=== PATIENT | female | born 1955 | race Caucasian/White ===

== ENCOUNTER → 2019-08-29 | Outpatient (CLI) | payer BC ==
--- NOTE | 2019-08-29 09:19 | US ---
EXAMINATION TYPE: US renal artery duplex complete DATE OF EXAM: 08/29/2019 COMPARISON: NONE CLINICAL HISTORY: I10 hypertension. MEASUREMENTS: RENAL SIZE: Rt Kidney: 9.1 x 3.5 x 4.2cm Lt Kidney: 10.9 x 5.2 x 5.2cm RESISTANCE INDEX Right: 0.64 Left: 0.68 RA/AO RATIO (< 3.5 ) Right: 5.0 Left: 2.5 RA VELOCITY ( < 180 cm/s) Right: 365cm/s Left: 177cm/s Right kidney measures smaller than left and there appears to be stenosis at the proximal renal artery . Left appears normal. IMPRESSION: Elevated velocities and elevated ratios on the right compatible with renal artery stenosis. Consider additional workup with MRA renal arteries.
== END | disposition home or self-care (01) ==
LOC: RADUSWWP 07:48
PROVIDERS: ATTEND Internal Medicine Interventional Cardiology
DX: I10 Essential (primary) hypertension (principal)
CPT/HCPCS: 93975

== ENCOUNTER 2020-08-07 22:29 | Inpatient (IN) | payer BC ==
[2020-08-07] MEDS ORDERED: MAGNESIUM HYDROXIDE 2,400 MG/10 ML CUP PO PRN (23:06)
[2020-08-07] MEDS ORDERED: NALOXONE 0.4 MG/ML 1 ML VIAL IV PRN (23:06)
[2020-08-07] MEDS ORDERED: MAG HYDROX/AL HYDROX/SIMETH 30 ML CUP PO PRN (23:06)
[2020-08-07] MEDS ORDERED: ONDANSETRON 4 MG/2 ML VIAL IVP PRN (23:06)
--- NOTE | 2020-08-07 23:06 | ED ---
Overdose HPI - General Chief Complaint: Overdose Stated Complaint: overdose Time Seen by Provider: 08/07/20 22:35 Source: patient, EMS Mode of arrival: EMS Limitations: no limitations - History of Present Illness Initial Comments: This patient is a 64-year-old woman who presents as a transfer from [facility] to have admission for telemetry monitoring. The patient had reportedly taken a handful of her prescription medications as a suicide attempt. She reportedly had been drinking and became somewhat depressed. She then reportedly took a number of her home medications. The exact combination of which she took is not known. The patient takes not allow 40 mg. She takes lisinopril 20 mg. She had [place] 5 mg. She has amlodipine 5 mg. She has hydrochlorothiazide 25 mg. The ingestion is believed to have occurred around 2 PM. She had gone to the other hospital just before 5 PM. The workup there revealed alcohol level I 92 mg/dL. She had Tylenol salicylate levels that were below the toxic limit. Remainder of her blood count, chemistries, urine and coagulation studies were within normal limits. When I question the patient about what had occurred she denies remembering exactly what happened. The patient is denying complaints at the moment. She is not having chest pain, dyspnea, abdominal pain, nausea or vomiting, headache or any neurologic symptoms. MD Complaint: intentional overdose -: hour(s) Intent: unwilling to say How Overdose Was Discovered: called family/friend Treatments Prior to Arrival: IV fluids - Related Data Home Medications Medication Instructions Recorded Confirmed HYDROcodone/APAP 5-325MG [[place] 1 tab PO DAILY PRN 10/28/19 10/31/19 5-325] amLODIPine BESYLATE 5 mg PO DAILY 10/28/19 10/31/19 nadoloL [Corgard] 20 mg PO DAILY 10/28/19 10/31/19 Previous Rx's Medication Instructions Recorded Aspirin 325 mg PO DAILY #30 tab 11/01/19 Clopidogrel [Plavix] 75 mg PO DAILY #3 tab 11/01/19 Allergies Allergy/AdvReac Type Severity Reaction Status Date / Time No Known Allergies Allergy Verified 08/07/20 22:54 Review of Systems ROS Statement: Those systems with pertinent positive or pertinent negative responses have been documented in the HPI. ROS Other: All systems not noted in ROS Statement are negative. Constitutional: Denies: fever Respiratory: Denies: cough, dyspnea Cardiovascular: Denies: chest pain, palpitations, orthopnea, syncope Gastrointestinal: Reports: constipation. Denies: abdominal pain, nausea, vomiting, diarrhea Genitourinary: Denies: dysuria, hematuria Musculoskeletal: Denies: back pain Skin: Denies: rash Neurological: Denies: headache, weakness, numbness Psychiatric: Reports: depression. Denies: auditory hallucinations, homicidal thoughts, suicidal thoughts Past Medical History Past Medical History: Hypertension Additional Past Medical History / Comment(s): back pain History of Any Multi-Drug Resistant Organisms: None Reported Past Surgical History: Tubal Ligation Additional Past Surgical History / Comment(s): LT SALPINGO OOPHERECTOMY. COLONOSCOPY Past Anesthesia/Blood Transfusion Reactions: Postoperative Nausea & Vomiting (PONV) Past Psychological History: No Psychological Hx Reported Smoking Status: Never smoker Past Alcohol Use History: Occasional Past Drug Use History: None Reported - Past Family History Mother Family Medical History: No Reported History General Exam Limitations: no limitations General appearance: alert, in no apparent distress Head exam: Present: atraumatic, normocephalic Eye exam: Present: normal appearance. Absent: scleral icterus, conjunctival injection ENT exam: Present: normal oropharynx Neck exam: Present: normal inspection Respiratory exam: Present: normal lung sounds bilaterally. Absent: respiratory distress, wheezes, rales, rhonchi, stridor Cardiovascular Exam: Present: normal rhythm, bradycardia (Heart rate 52 of my exam), normal heart sounds. Absent: systolic murmur, diastolic murmur, rubs, gallop GI/Abdominal exam: Present: soft. Absent: distended, tenderness, guarding, rebound, rigid, mass Extremities exam: Present: normal inspection, normal capillary refill. Absent: pedal edema, calf tenderness Back exam: Present: normal inspection. Absent: CVA tenderness (R), CVA tenderness (L) Neurological exam: Present: alert, oriented X3. Absent: motor sensory deficit Psychiatric exam: Present: normal affect, normal mood. Absent: homicidal ideation, suicidal ideation Skin exam: Present: warm, dry, intact, normal color. Absent: rash Course Vital Signs 08/07/20 22:44 Temperature 97.5 F L Pulse Rate 52 L Respiratory 14 Rate Blood Pressure 124/73 O2 Sat by Pulse 98 Oximetry Medical Decision Making - EKG Data -: EKG Interpreted by Me EKG shows normal: sinus rhythm, axis (Normal), intervals (Normal), QRS complexes (Normal), ST-T waves (Normal) Rate: bradycardia (852 bpm) Disposition Clinical Impression: Drug overdose, Suicide attempt by multiple drug overdose Disposition: ADMITTED IP TO THIS [facility] Condition: Fair Instructions (If sedation given, give patient instructions): Adult Overdose (ED) Is patient prescribed a controlled substance at d/c from ED?: No Referrals: Stew Bobby MD [Primary Care Provider] - 1-2 days
[2020-08-07 23:21] LABS: HCT 42.3 % (34.0-46.0); HGB 14.6 gm/dL (11.4-16.0); MCHC 34.4 g/dL (31.0-37.0); MCV 89.9 fL (80.0-100.0); Mean Platelet Volume 7.2; Platelet Count 229 k/uL (150-450); RBC 4.71 m/uL (3.80-5.40); RDW 12.8 % (11.5-15.5); WBC 5.8 k/uL (3.8-10.6)
[2020-08-07 23:42] LABS: ALT 27 U/L (4-34); AST 38 U/L (14-36); Acetaminophen 14.3 ug/mL; African American GFR (CKD) >90 (>60 ml/min/1.73 sqM); Albumin 3.9 g/dL (3.5-5.0); Alkaline Phosphatase 88 U/L (38-126); Anion Gap 5 mmol/L; Blood Urea Nitrogen 19 mg/dL (7-17); Calcium 8.7 mg/dL (8.4-10.2); Carbon Dioxide 25 mmol/L (22-30); Chloride 110 mmol/L (98-107); Glucose 78 mg/dL (74-99); Non-African American GFR(CKD) >90 (>60 ml/min/1.73 sqM); Potassium 4.6 mmol/L (3.5-5.1); Sodium 140 mmol/L (137-145); Total Bilirubin 0.6 mg/dL (0.2-1.3); Total Protein 6.9 g/dL (6.3-8.2)
[2020-08-07 23:50] LABS: Alcohol 105 mg/dL
[2020-08-08] MEDS: SODIUM CHLORIDE 0.9% 1,000 ML IV SCH ×3 (04:08→16:22)
[2020-08-08 08:36] LABS: Basophils # (A) 0.1 k/uL (0-0.2); Basophils % (A) 1 %; Eosinophils # (A) 0.1 k/uL (0-0.7); Eosinophils % (A) 1 %; HCT 42.5 % (34.0-46.0); HGB 14.5 gm/dL (11.4-16.0); Lymphocytes # (A) 1.1 k/uL (1.0-4.8); Lymphocytes % (A) 16 %; MCHC 34.1 g/dL (31.0-37.0); Mean Platelet Volume 7.2; Monocytes # (A) 0.3 k/uL (0-1.0); Monocytes % (A) 4 %; Neutrophils # (A) 5.3 k/uL (1.3-7.7); Neutrophils % (A) 76 %; Platelet Count 224 k/uL (150-450); RBC 4.67 m/uL (3.80-5.40)
[2020-08-08 08:46] LABS: Albumin 3.6 g/dL (3.5-5.0); Calcium 8.8 mg/dL (8.4-10.2); Potassium 4.1 mmol/L (3.5-5.1); Total Bilirubin 0.7 mg/dL (0.2-1.3); Total Protein 6.4 g/dL (6.3-8.2)
[2020-08-08] MEDS ORDERED: ASPIRIN 325 MG TAB PO SCH (09:00)
[2020-08-08] MEDS: CLOPIDOGREL 75 MG TAB PO SCH (11:18)
[2020-08-08] MEDS: FAMOTIDINE 20 MG TAB PO SCH ×2 (11:18→21:01)
[2020-08-08] MEDS: amLODIPine 5 MG TAB PO SCH (11:18)
--- NOTE | 2020-08-08 11:19 | P.CN ---
Psychiatric Consult - . Consult date: 08/08/20 Consult:: IDENTIFYING DATA: She is a 64-year-old female who was transferred from [facility] for telemetry monitoring. The hospitalist submitted a psychiatric consult to evaluate the patient for an overdose. Her toxicology showed an acetaminophen of 14.3 and a serum alcohol of 103. A UDS was not available for review. HISTORY OF PRESENT ILLNESS: I reviewed the medical record, interviewed the patient and spoke with her Jayme. She stated that she was distressed the day she was admitted to [facility]. That her dog had . It was also the anniversary of her son's suicide and her [place] [facility] of [place]. They spend the day involved with the burial of the dog. Her build a coffin and they dug a grave to bury their dog. She talked about the distress caused by the loss of a dog, the anniversary of her son's and her concerns for her mother. She admits to "drinking all day". Her stated that they were both dri nking becuase they were upset in particular by the of their dog. He stated that she went into the house and when he came inside he found her lethargic and confused and called emergency services. He thought that she had taken too much of her prescription medications. She denied that she had taken extra doses of her prescription medications. She denied that she had attempted suicide or that her actions with suicide gesture. She denied having thoughts or wishes. She denied history of suicide attempts or gestures. She denied a history of nonlethal self-harm. She described her recurrent distress on the anniversary of her son's . Otherwise, she denied experiencing persistent anxiety or depression. She denied that friends or family have consisted express concerns about her alcohol use. Normally she would drink wine maybe 2 drinks per day. Her confirmed that she seldom drinks more than she described. She denied history of abuse of drugs such as methamphetamine, opiates, cocaine, benzodiazepines etc. PAST PSYCHIATRIC HISTORY: She denied psychiatric hospitalizations. She met with a counselor after the of her son. PAST MEDICAL HISTORY: See admission history and physical exam ALLERGIES: NO KNOWN DRUG ALLERGIES. SUBSTANCE USE HISTORY: He denied a history of substance use problems or substance use treatment. FAMILY PSYCHIATRIC/SUBSTANCE USE HISTORY: She is unaware of family history of substance use problems. Her son struggled with depression and by suicide. SOCIAL HISTORY: She graduated from high school. She is to her second for 38 years. She has 1 son from a prior marriage and her has 2 children. Together they adopted a child who developed a severe psychiatric illness. They're both retired. MENTAL STATUS EXAM: She presented as a relatively disheveled appearing female who is laying comfortably in hospital bed. Her was at the bedside. She made eye contact and attended to the interview. She had no physical abnormalities. She had a blunted facial expression. Her speech was spontaneous, soft and slow. Her affect was blunted and minimally reactive. She denied suicidal ideation, wishes and homicidal ideation. She denied feeling hopeless, helpless or worthless. She ruminated over the above stresses particularly the of her dog. She denied express ideas reference, paranoid ideation, magical ideation or delusions. Her thinking was concrete but her associations were coherent, logical and goal directed. She denied hallucinations did not appear to be responding to internal stimuli. Global impression of intellect is average. IMPRESSIONS: She is a 64-year-old female brought to the [facility] for telemetry monitoring over suspected overdose. Her was present and confirmed her history. She was consuming more alcohol than usual on the day prior to her admission as she was grieving multiple losses. Her contacted medical services because she appeared confused and lethargic. She admitted to taking her antihypertensive medications when she was intoxicated but denied that she taken them in a suicide attempt. She denied suicidal ideation and wishes. She denied history of suicide attempts or gestures. She has many signs and symptoms of bereavement. There is no indication for admission the psychiatric unit but she would benefit from outpatient mental health services. DIAGNOSIS: Bereavement, acute alcohol intoxication RECOMMENDATION: There is no indication for admission the psychiatric unit this time. She would benefit from referral for outpatient mental health services. Thank you for this consult. Psychiatry will sign off on the case. 08/08/20 10:52
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
[2020-08-08] MEDS ORDERED: HYDROcodone/APAP 5-325MG 1 EACH TAB PO PRN (12:48)
[2020-08-08] MEDS: HEPARIN SODIUM,PORCINE 5,000 UNIT/ML 1 ML VIAL SQ SCH (21:01)
[2020-08-09] MEDS: SODIUM CHLORIDE 0.9% 1,000 ML IV SCH ×2 (02:44→09:13)
[2020-08-09] MEDS ORDERED: ASPIRIN 81 MG PO SCH (09:00)
[2020-08-09] MEDS ORDERED: ATORVASTATIN 40 MG TAB PO SCH (09:00)
[2020-08-09 09:11] VITALS: RESP 16; TEMP 97.8
[2020-08-09] MEDS: FAMOTIDINE 20 MG TAB PO SCH (09:12)
[2020-08-09] MEDS: CLOPIDOGREL 75 MG TAB PO SCH (09:13)
[2020-08-09] MEDS: HEPARIN SODIUM,PORCINE 5,000 UNIT/ML 1 ML VIAL SQ SCH (09:13)
[2020-08-09] MEDS: amLODIPine 5 MG TAB PO SCH (09:13)
--- NOTE | 2020-08-09 09:22 | P.CRDCN ---
History of Present Illness Consult date: 08/09/20 Reason for Consult (text): Bradycardia Chief complaint: EtOH intoxication History of present illness: This is a pleasant 64-year-old female who follows regularly with Dr. Olivas in the office. She has a documented history of hypertension, hyperlipidemia, family history of premature coronary artery disease, nicotine dependence, she underwent a cardiac catheterization in November of this year which revealed intermediate to severe RCA disease, FFR was performed at that time which came back to be nonischemic, 0.91. Medical therapy advised. Patient has recently lost her dog, she was quite depressed, and started drinking significant amounts of alcohol. She also states that she had severe back pain and took extra hydrocodone at the same time she was drinking alcohol. She presented to the hospital in [place] with alcohol intoxication. Patient was noted to be bradycardic there and for this reason she was transferred here to [facility] for further evaluation and treatment. Her initial EKG showed a sinus bradycardia with a heart rate in the 50s. This morning the patient's heart rate is in the 60s. Blood pressure 133/70 with a heart rate in the 70s, white blood cell count 7.0, hemoglobin 14.5, platelet count 224. Sodium 140, potassium 4.1, BUN 27, creatinine 0.8. At the time of my examination this morning, patient states she feels well, no complaints of chest discomfort, she does state that she has intermittent dizziness, even before she had this episode of alcohol drinking. She does state that she drinks one glass of alcoholic beverage per day, but never drinks this much. Her home medications included Lipitor 40 mg daily, nadolol 20 mg daily, Norvasc 7-1/2 mg daily, Plavix 75 mg daily, aspirin 325 mg daily. Her nadolol is currently on hold, we will resume the nadolol 10 mg luis manuel y. Obtain an echo and a TSH level. Past Medical History Past Medical History: Fibromyalgia, Hypertension Additional Past Medical History / Comment(s): back pain History of Any Multi-Drug Resistant Organisms: None Reported Past Surgical History: Tubal Ligation Additional Past Surgical History / Comment(s): LT SALPINGO OOPHERECTOMY. COLONOSCOPY Past Anesthesia/Blood Transfusion Reactions: Postoperative Nausea & Vomiting (PONV) Past Psychological History: No Psychological Hx Reported Smoking Status: Former smoker Past Alcohol Use History: Daily Additional Past Alcohol Use History / Comment(s): QUIT SMOKING 15 YEAS AGO-WILL CHEW NICOTINE GUM AT TIMES. reports that she has one drink per day. Past Drug Use History: None Reported - Past Family History Mother Family Medical History: No Reported History Medications and Allergies Home Medications Medication Instructions Recorded Confirmed Type HYDROcodone/APAP 5-325MG [[place] 1 tab PO BID PRN 10/28/19 08/08/20 History 5-325] amLODIPine BESYLATE 7.5 mg PO DAILY 10/28/19 08/08/20 History Aspirin 325 mg PO DAILY #30 tab 11/01/19 08/08/20 Rx Clopidogrel [Plavix] 75 mg PO DAILY #3 tab 11/01/19 08/08/20 Rx Atorvastatin Calcium [Lipitor] 40 mg PO DAILY 08/08/20 08/08/20 History Nadolol [Corgard] 20 mg PO DAILY 08/08/20 08/08/20 History Allergies Allergy/AdvReac Type Severity Reaction Status Date / Time No Known Allergies Allergy Verified 08/08/20 09:50 Physical Exam Vitals: Vital Signs Temp Pulse Pulse Resp BP BP Pulse Ox 08/09/20 09:00 97.8 F 56 L 16 171/75 98 08/09/20 02:24 97.9 F 67 17 165/83 97 08/09/20 02:00 67 19 08/09/20 00:00 98.0 F 60 18 133/72 98 08/08/20 20:00 98.0 F 57 L 18 132/71 96 08/08/20 15:26 64 20 118/83 98 08/08/20 13:00 98.3 F 57 L 18 137/70 96 08/08/20 11:15 98.5 F 50 L 18 144/78 95 Intake and Output 08/08/20 08/09/20 08/09/20 22:59 06:59 14:59 Intake Total 236 780 240 Balance 236 780 240 Intake: Intake, IV Titration 780 Amount Sodium Chloride 0.9% 1, 780 000 ml @ 130 mls/hr IV . Q7H42M [facility] Rx#:[id number] Oral 236 240 Other: # Voids 1 1 Weight 68 kg PHYSICAL EXAMINATION: GENERAL: 64-year-old female in no acute distress at the time of my examination HEENT: Head is atraumatic, normocephalic. Pupils equal, round. Sclera anicteric. Conjunctiva are clear. Mucous membranes of the mouth are moist. Neck is supple. There is no elevated jugular venous pressure. No carotid bruit is heard. HEART EXAMINATION: Heart S1, S2 normal. No murmur or gallop heard. CHEST EXAMINATION: Lungs are clear to auscultation and precussion. No chest wall tenderness is noted on palpation or with deep breathing. ABDOMEN: Soft, nontender. Bowel sounds are heard. No organomegaly noted. EXTREMITIES: 2+ peripheral pulses with no evidence of peripheral edema and no calf tenderness noted. NEUROLOGIC patient is awake, alert and oriented 3 . Results 08/08/20 08:19 08/08/20 08:19 Current Medications Generic Name Dose Route Start Last Admin Trade Name Freq PRN Reason Stop Dose Admin Hydrocodone Bitart/Acetaminophen 1 each 08/08/20 12:48 Hydrocodone/Apap 5-325mg 1 Each Tab PO BID PRN Pain Al Hydroxide/Mg Hydroxide 15 ml 08/07/20 23:06 Mag Hydrox/Al Hydrox/Simeth 30 Ml Cup PO Q6HR PRN Indigestion Amlodipine Besylate 5 mg 08/08/20 09:00 08/09/20 09:13 Amlodipine 5 Mg Tab PO 5 mg DAILY FLAKITO Administration Aspirin 81 mg 08/09/20 09:00 Aspirin 81 Mg PO DAILY FLAKITO Atorvastatin Calcium 40 mg 08/09/20 09:00 08/09/20 09:12 Atorvastatin 40 Mg Tab PO 40 mg DAILY FLAKITO Administration Clopidogrel Bisulfate 75 mg 08/08/20 09:00 08/09/20 09:13 Clopidogrel 75 Mg Tab PO 75 mg DAILY FLAKITO Administration Famotidine 20 mg 08/08/20 09:00 08/09/20 09:12 Famotidine 20 Mg Tab PO 20 mg BID FLAKITO Administration Heparin Sodium (Porcine) 5,000 unit 08/08/20 21:00 08/09/20 09:13 Heparin Sodium,Porcine 5,000 Unit/Ml 1 Ml Vial SQ 5,000 unit Q12HR FLAKITO Administration Sodium Chloride 1,000 mls @ 75 mls/hr 08/07/20 23:15 08/09/20 09:13 Saline 0.9% IV 75 mls/hr .[id number] FLAKITO Administration Magnesium Hydroxide 2,400 mg 08/07/20 23:06 Magnesium Hydroxide 2,400 Mg/10 Ml Cup PO DAILY PRN Constipation Naloxone HCl 0.2 mg 08/07/20 23:06 Naloxone 0.4 Mg/Ml 1 Ml Vial IV Q2M PRN Opioid Reversal Ondansetron HCl 4 mg 08/07/20 23:06 Ondansetron 4 Mg/2 Ml Vial IVP Q8HR PRN Nausea And Vomiting Intake and Output 08/08/20 08/09/20 08/09/20 22:59 06:59 14:59 Intake Total 236 780 240 Balance 236 780 240 Intake: Intake, IV Titration 780 Amount Sodium Chloride 0.9% 1, 780 000 ml @ 130 mls/hr IV . Q7H42M [facility] Rx#:[id number] Oral 236 240 Other: # Voids 1 1 Weight 68 kg 08/08/20 08:19 08/08/20 08:19 EKG Interpretations (text) EKG shows a sinus bradycardia with no acute changes. Assessment and Plan Plan: Assessment and plan #1 alcohol intoxication #2 sinus bradycardia, heart rate this morning in the 70s, likely related to suppression from alcohol intoxication. #3 hypertension #4 hyperlipidemia #5 nicotine dependence #6 family history of premature coronary artery disease #7 coronary artery disease, patient underwent a cardiac catheterization on November 25 of this year which revealed intermediate to severe disease in the RCA, FFR 0.91, nonischemic, medical therapy advised at that time. Plan We will obtain an echocardiogram with Doppler study as well as a TSH, resume the nadolol 10 mg daily. From cardiology's perspective the patient should be able to be discharged home later today to follow-up with Dr. Olivas in the office post discharge. DNP note has been reviewed, I agree with a documented findings and plan of care. Patient was seen and examined.
[2020-08-09 10:12] LABS: ALT 29 U/L (4-34); AST 33 U/L (14-36); African American GFR (CKD) >90 (>60 ml/min/1.73 sqM); Alkaline Phosphatase 105 U/L (38-126); Anion Gap 5 mmol/L; Blood Urea Nitrogen 12 mg/dL (7-17); Calcium 9.2 mg/dL (8.4-10.2); Carbon Dioxide 27 mmol/L (22-30); Chloride 108 mmol/L (98-107); Glucose 107 mg/dL (74-99); Magnesium 1.9 mg/dL (1.6-2.3); Non-African American GFR(CKD) >90 (>60 ml/min/1.73 sqM); Potassium 3.8 mmol/L (3.5-5.1); Sodium 140 mmol/L (137-145); Total Bilirubin 0.7 mg/dL (0.2-1.3); Total Protein 7.1 g/dL (6.3-8.2)
--- NOTE | 2020-08-09 12:00 | ECHOF ---
Referral Reason:bradycardia MEASUREMENTS -------- HEIGHT: 157.5 cm WEIGHT: 67.6 kg BP: 171/75 RVIDd: 2.3 cm (< 3.3) IVSd: 1.4 cm (0.6 - 1.1) LVIDd: 3.0 cm (3.9 - 5.3) LVPWd: 1.5 cm (0.6 - 1.1) IVSs: 1.9 cm LVIDs: 1.5 cm LVPWs: 1.8 cm LAESV Index (A-L): 23.47 ml/m Ao Diam: 2.6 cm (2.0 - 3.7) AV Cusp: 1.9 cm (1.5 - 2.6) LA Diam: 3.0 cm (2.7 - 3.8) MV EXCURSION: 9.414 mm (> 18.000) MV EF SLOPE: 120 mm/s (70 - 150) EPSS: 0.4 cm MV E Fabian: 0.95 m/s MV DecT: 247 ms MV A Fabian: 0.71 m/s MV E/A Ratio: 1.33 RAP: 5.00 mmHg RVSP: 41.77 mmHg FINDINGS -------- Sinus rhythm. This was a technically adequate study. The left ventricular size is normal. There is moderate concentric left ventricular hypertrophy. O verall left ventricular systolic function is normal with, an EF between 55 - 60 %. Normal LAP Grade 1 Diastolic Dysfunction. The right ventricle is normal in size. Normal LA size by volume 22+/-6 ml/m2. The right atrial size is normal. The aortic valve is trileaflet, and appears structurally normal. No aortic stenosis or regurgitation. The mitral valve is normal. Mild mitral regurgitation is present. The tricuspid valve appears structurally normal. Mild tricuspid regurgitation present. There is m ild pulmonary hypertension. The right ventricular systolic pressure, as measured by Doppler, is 41. 77mmHg. There is no pulmonic regurgitation present. The aortic root size is normal. Normal inferior vena cava with normal inspiratory collapse consistent with estimated right atrial pre ssure of 5 mmHg. There is no pericardial effusion. CONCLUSIONS -------- 1. There is moderate concentric left ventricular hypertrophy. 2. Overall left ventricular systolic function is normal with, an EF between 55 - 60 %. 3. Normal LAP Grade 1 Diastolic Dysfunction. 4. Normal LA size by volume 22+/-6 ml/m2. 5. The aortic valve is trileaflet, and appears structurally normal. No aortic stenosis or regurgitati on. 6. Mild mitral regurgitation is present. 7. Mild tricuspid regurgitation present. 8. There is mild pulmonary hypertension. 9. There is no pericardial effusion. CREDIT VERIFICATION CLERK: Carmen Ennis RDCS
[2020-08-09 12:14] VITALS: BP 118/77; PULSE 77
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
== END 2020-08-09 15:32 | disposition home or self-care (01) | DRG 896 ==
LOC: EC 22:29 → 3SCARD 23:06
PROVIDERS: ADMIT Hospitalist; ATTEND Hospitalist
DX: F10.129 Alcohol abuse with intoxication, unspecified (principal); G92 Toxic encephalopathy; M79.7 Fibromyalgia; I25.10 Atherosclerotic heart disease of native coronary artery without angina pectoris; I10 Essential (primary) hypertension; F17.200 Nicotine dependence, unspecified, uncomplicated; E78.5 Hyperlipidemia, unspecified; G89.29 Other chronic pain; M54.9 Dorsalgia, unspecified; Z63.4 Disappearance and death of family member; Z79.02 Long term (current) use of antithrombotics/antiplatelets; Z79.82 Long term (current) use of aspirin; Z79.899 Other long term (current) drug therapy; Z82.49 Family history of ischemic heart disease and other diseases of the circulatory system; Z95.5 Presence of coronary angioplasty implant and graft; Z98.51 Tubal ligation status; Z98.890 Other specified postprocedural states
CPT/HCPCS: 36415; 80053; 80320; 80329; 83735; 84443; 85025; 85027; 93005; 93306; 99285